=== PATIENT | female | born 1950 | race Caucasian/White ===

== ENCOUNTER 2016-09-24 10:46 | Inpatient (IN) | payer OTHER ==
[2016-09-24] MEDS ORDERED: HYDROmorphone HCL 1 MG/ML DISP.SYRIN IM ONE (10:47)
[2016-09-24] MEDS ORDERED: HYDROmorphone HCL 1 MG/ML DISP.SYRIN IV ONE (10:48)
[2016-09-24] MEDS ORDERED: HYDROmorphone HCL 1 MG/ML DISP.SYRIN ONE ×2 (10:50→11:58)
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
--- OUTSIDE RECORDS SUMMARY | 2016-09-24 11:57 | XMS REPORT | Continuity of Care Document ---
:1950 Author Organization [facility] ([facility]) Address [address] [place] [address] Phone [phone] Care Team Providers Name Role Phone Unavailable Primary Care Provider Unavailable Source Comments This disclosure is being made pursuant to the Care Everywhere program, applicable federal and state laws, and may not contain all informaitonavailable regarding this patient.[facility] ([facility]) Active Allergies and Adverse Reactions Not on File Current Medications Not on file Active Problems Not on file Social History Tobacco Use Types Packs/Day Years Used Date Never Assessed Plan of Care Health Maintenance Due Date Last Done Comments HCV Screening 1950 Hepatitis B Vaccine (1 of 3 - Primary Series) 1950 Tdap Vaccine 12/22/1962 Lipid Disorder Screening 12/22/1969 Td Vaccine 12/22/1969 Cervical Cancer Screening 12/22/1981 Mammogram 1991 Colonoscopy 12/22/2001 Zoster Vaccine 2011 Influenza Vaccine: Seasonal (#1) 11/10/2015 Results from Last 3 Months Not on file
--- OUTSIDE RECORDS SUMMARY | 2016-09-24 11:59 | XMS REPORT | Continuity of Care Document ---
:1950 Author Organization [facility] ([facility]) Address [address] [place] [address] Phone [phone] Care Team Providers Name Role Phone Unavailable Primary Care Provider Unavailable Source Comments This disclosure is being made pursuant to the Care Everywhere program, applicable federal and state laws, and may not contain all informaitonavailable regarding this patient.[facility] ([facility]) Active Allergies and Adverse Reactions Not on [...]
[2016-09-24] MEDS: HYDROmorphone HCL 1 MG/ML DISP.SYRIN IV PRN ×5 (12:03→23:23)
[2016-09-24 12:18] LABS: Hematocrit 38.2 % (37.0-47.0); Hemoglobin 13.2 gm/dL (12.5-16.0); Mean Cell Volume 89.3 fl (78-100); Mean Corpuscular Hemoglobin 30.8 pg (27-31); Mean Corpuscular Hgb Conc 34.6 g/dl (32-36); Mean Platelet Volume 10.3 fl (6.0-9.5); Neutrophil # 4.4 K/mm3 (1.3-6.0); Platelet Count 142 K/mm3 (150-450); Red Blood Count 4.28 M/mm3 (4.2-5.4); Red Cell Distribution Width 13.2 % (11.5-14.0); White Blood Count 5.7 K/mm3 (4.0-10.5)
[2016-09-24 12:41] LABS: Albumin * 3.8 gm/dl (3.4-5.0); Anion Gap 13.6 mmol/L (6.8-13.8); Bilirubin, Total 0.8 mg/dL (0.0-1.1); Ca. Corrected For Albumin 8.9 mg/dL (8.4-10.2); Calcium * 9.1 mg/dL (7.9-10.9); Carbon Dioxide 27.2 mmol/L (24-32.6); Potassium 3.8 mmol/L (3.4-4.6); Total Protein 6.7 gm/dL (6.2-8.2)
[2016-09-24] MEDS: DEXTROSE 5%-NORMAL SALINE 1,000 ML IV PRN ×2 (13:40→20:56)
--- NOTE | 2016-09-24 17:47 | HP ---
Chief Complaint - Chief Complaint Date of Service: 09/24/16 Time of Service: 19:15 Chief Complaint: Right upper thigh pain History of Present Illness: This a 65 y/o essentially healthy woman who presented to the [facility] ER today after injuring herself while going for the ball while playing pickle ball. She fell and immediately complained of right upper thigh pain. She denied any numbness, tingling, dyspnea, chest pain, nausea, chest pain, nausea or dizziness. She has a history of hypothyroidism. She is unable to stand on her right leg. Xray shows a right femoral neck fracture. - Patient's Past Medical History Patient History - Medical: No pertinent hx, Hypothyroidism Patient History - Cardiac/Respiratory: No pertinent hx Patient History - Cancer: No Hx of Cancer Patient History - Surgical Procedures: Orthopedic Patient History - Other: None LMP (females 10-50): unknown - Family History Father Family History - Medical: , Alzheimer's Disease Family History - Cardiac/Respiratory: COPD Family History - Cancer: No pertinent family hx Mother Family History - Medical: Cataracts, Kidney stone Family History - Cardiac/Respiratory: No pertinent hx Family History - Cancer: No pertinent family hx - Social History Living Situations: spouse Abuse History: No History of abuse Psych History: No pertinent hx Smoking Status: Never smoker Have you smoked in the past 12 months: No Do you dip or chew tobacco: No Patient requests Smoking Cessation Consult: No Initiate information on Smoking Cessation: No Alcohol Use: occasionally Drug Use: none - Immunizations Immunizations Up to Date: Yes History of Influenza Vaccine: Yes Review Of Systems (GEN) - Review of Systems Generalized/Overall Review: Present: No Symptoms Reported EENTM: Present: No Symptoms Reported Respiratory: Present: No Symptoms Reported Cardiac: Present: No Symptoms Reported Abdominal: Present: No Symptoms Reported Genitourinary: Present: No Symptoms Reported Musculoskeletal: Present: Joint Pain - right upper thigh pain Neurological: Present: No Symptoms Reported Skin: Present: No Symptoms Reported Endocrine: Present: No Symptoms Reported Misc: All systems neg except as marked Immunizations: IMMUNIZATION HX Immunizations Up to Date Yes History of Influenza Vaccine Yes Allergies/Adverse Reactions: Allergies Allergy/AdvReac Type Severity Reaction Status Date / Time No Known Allergies Allergy Verified 09/24/16 10:55 Home Medications: HOME MEDICATIONS Levothyroxine Sodium [Synthroid] 25 mcg PO DAILY 09/24/16 [Last Taken Unknown] Exam - Exam Vital Signs: Vital Signs - Last Taken Selected Entries 09/24/16 15:52 Temperature 35.8 C L Pulse Rate 81 Respiratory 20 Rate Blood Pressure 114/63 O2 Sat by Pulse 95 Oximetry Constitutional: Present: Alert, Oriented x3, Cooperative, Well developed, Well nourished, No distress ENT Exam: Present: normal ENT inspection, hearing grossly normal Eye Exam: bilateral eye: normal inspection, PERRL, EOMI Neck: Present: normal inspection Back Exam: Present: normal inspection Respiratory: Present: normal breath sounds, no respiratory distress Cardiovascular/Chest: Present: regular rate, rhythm, no murmur Abdomen: Present: Normal bowel sounds, soft, nontender, nondistended, no rebound tenderness, no hepatospenomegaly, no masses Extremity: Present: normal inspection, no pedal edema, other - pain with movement of right leg Neurologic: Present: alert, oriented x 3 Appearance: Present: appropriate appearance, appropriate insight, neat, no memory impairment Eye contact: Present: cooperative, good eye contact, normal speech Thoughts: Present: normal thought pattern Diagnostic Studies: Abnormal Lab Results 09/24/16 Range/Units 12:14 Plt Count 142 L (150-450) K/mm3 MPV 10.3 H (6.0-9.5) fl Neutrophils % 78.0 H (42-75.0) % Lymphocytes % 16.6 L (20-51) % Lymphocytes # 0.9 L (1.5-3.5) k/mm3 Laboratory Results WBC 5.7 K/mm3 (4.0-10.5) 09/24/16 12:14 RBC 4.28 M/mm3 (4.2-5.4) 09/24/16 12:14 Hgb 13.2 gm/dL (12.5-16.0) 09/24/16 12:14 Hct 38.2 % (37.0-47.0) 09/24/16 12:14 MCV 89.3 fl (78-100) 09/24/16 12:14 MCH 30.8 pg (27-31) 09/24/16 12:14 MCHC 34.6 g/dl (32-36) 09/24/16 12:14 RDW 13.2 % (11.5-14.0) 09/24/16 12:14 Plt Count 142 K/mm3 (150-450) L 09/24/16 12:14 MPV 10.3 fl (6.0-9.5) H 09/24/16 12:14 Immature Gran % (Auto) 0.40 % (0.001-0.429) 09/24/16 12:14 Immature Gran # (Auto) 0.02 K/mm3 (0.000-0.0310) 09/24/16 12:14 Neutrophils % 78.0 % (42-75.0) H 09/24/16 12:14 Lymphocytes % 16.6 % (20-51) L 09/24/16 12:14 Monocytes % 4.4 % (0.0-9) 09/24/16 12:14 Eosinophils % 0.2 % (0.0-3.0) 09/24/16 12:14 Basophils % 0.4 % (0.0-1.0) 09/24/16 12:14 Nucleated RBC % 0.0 k/mm3 (0-1) 09/24/16 12:14 Neutrophils # 4.4 K/mm3 (1.3-6.0) 09/24/16 12:14 Lymphocytes # 0.9 k/mm3 (1.5-3.5) L 09/24/16 12:14 Monocytes # 0.3 k/mm3 (0.0-1.0) 09/24/16 12:14 Eosinophils # 0.0 k/mm3 (0.0-0.7) 09/24/16 12:14 Absolute Basophils 0.0 k/mm3 (0.0-0.1) 09/24/16 12:14 Sodium 140 mmol/L (132-142) 09/24/16 12:14 Plasma Sodium 140 mmol/L (130-142) 09/24/16 12:14 Potassium 3.8 mmol/L (3.4-4.6) 09/24/16 12:14 Chloride 103 mmol/L (97-106) 09/24/16 12:14 Carbon Dioxide 27.2 mmol/L (24-32.6) 09/24/16 12:14 Anion Gap 13.6 mmol/L (6.8-13.8) 09/24/16 12:14 BUN 16 mg/dL (3-23) 09/24/16 12:14 Creatinine 0.94 mg/dL (0.4-1.4) 09/24/16 12:14 Est GFR (Non-Af Amer) 64 mL/min (60-130) 09/24/16 12:14 BUN/Creatinine Ratio 17.0 (9.0-21.6) 09/24/16 12:14 Random Glucose 110 mg/dL (70-110) 09/24/16 12:14 Calcium 9.1 mg/dL (7.9-10.9) 09/24/16 12:14 Calcium Adj for Albumin 8.9 mg/dL (8.4-10.2) 09/24/16 12:14 Total Bilirubin 0.8 mg/dL (0.0-1.1) 09/24/16 12:14 AST 21 U/L (0-48) 09/24/16 12:14 ALT 25 U/L (19-67) 09/24/16 12:14 Alkaline Phosphatase 57 U/L (50-170) 09/24/16 12:14 Total Protein 6.7 gm/dL (6.2-8.2) 09/24/16 12:14 Albumin 3.8 gm/dl (3.4-5.0) 09/24/16 12:14 Assessment/Plan - Narrative Narrative: No contraindication to planned repair of fracture tomorrow, which may proceed. A little nause tonight with pain medication. - Assessment/Plan (1) Fracture of femoral neck, right, closed Problem: Acute Qualifiers: Encounter type: initial encounter Qualified Code(s): S72.001A - Fracture of unspecified part of neck of right femur, initial encounter for closed fracture
[2016-09-24] MEDS: ONDANSETRON HCL/PF 2 MG/ML VIAL IV PRN (19:03)
[2016-09-24] MEDS: ACETAMINOPHEN 325 MG TABLET PO PRN (20:54)
[2016-09-24] MEDS ORDERED: ZOLPIDEM TARTRATE 5 MG TABLET PO ONE (21:00)
[2016-09-24] MEDS ORDERED: ZOLPIDEM TARTRATE 5 MG TABLET ONE (23:21)
[2016-09-25] MEDS: HYDROmorphone HCL 1 MG/ML DISP.SYRIN IV PRN ×5 (00:23→15:51)
[2016-09-25] MEDS: DEXTROSE 5%-NORMAL SALINE 1,000 ML IV PRN (04:38)
[2016-09-25 05:33] LABS: Hematocrit 35.6 % (37.0-47.0); Hemoglobin 11.8 gm/dL (12.5-16.0); Mean Cell Volume 93.2 fl (78-100); Mean Corpuscular Hemoglobin 30.9 pg (27-31); Mean Corpuscular Hgb Conc 33.1 g/dl (32-36); Mean Platelet Volume 10.7 fl (6.0-9.5); Platelet Count 120 K/mm3 (150-450); Red Blood Count 3.82 M/mm3 (4.2-5.4); Red Cell Distribution Width 13.4 % (11.5-14.0)
[2016-09-25 05:52] LABS: Anion Gap 8.6 mmol/L (6.8-13.8); BUN/Creatinine Ratio 9.9 (9.0-21.6); Calcium * 8.2 mg/dL (7.9-10.9); Carbon Dioxide 30.1 mmol/L (24-32.6); Estimated Creat Clear 65.3; Potassium 3.7 mmol/L (3.4-4.6)
[2016-09-25] MEDS ORDERED: RINGERS SOLUTION,LACTATED 1,000 ML IV PRN (06:00)
[2016-09-25] MEDS ORDERED: ROPIVACAINE HCL/PF 100 MG, KETOROLAC TROMETHAMINE 30 MG, EPINEPHrine 0.2 MG in NORMAL S... IJ PRN (06:00)
[2016-09-25] MEDS: ACETAMINOPHEN 325 MG TABLET PO PRN (06:46)
[2016-09-25] MEDS: ONDANSETRON HCL/PF 2 MG/ML VIAL IV PRN ×2 (07:21→22:02)
--- NOTE | 2016-09-25 08:34 | CONS ---
[facility] - General Date of Service: 09/25/16 Narrative: Mrs Cadena is a 65-year-old female who was playing pickle ball when she fell resulting in a fracture of her right hip. She was seen in the emergency department at which time she was found to have an inability to weight-bear as well as notable hip pain. X-rays were obtained which showed a displaced subcapital femoral neck fracture. She denies any other trauma. She is very active and healthy otherwise. She denies any prior hip pain. She denies any family history of blood clots or bleeding disorders. She denies any family history of anesthesia problems. She's had prior rotator cuff surgery with no complications related to this. Source: patient - History of Present Illness Timing/Duration: 24 hours Severity: moderate Modifying Factors - (Worsens): Reports: movement Modifying Factors - (Improves): Reports: immobilization Associated Symptoms: denies symptoms Allergies/Adverse Reactions: Allergies No Known Allergies Allergy (Verified 09/24/16 10:55) Home Medications: Home Medications Medication Instructions Recorded Last Taken Levothyroxine Sodium [Synthroid] 25 mcg PO DAILY 09/24/16 Unknown - Patient's Past Medical History Patient History - Medical: No pertinent hx, Hypothyroidism Patient History - Cardiac/Respiratory: No pertinent hx Patient History - Cancer: No Hx of Cancer Patient History - Surgical Procedures: Orthopedic Patient History - Other: None LMP (females 10-50): unknown - Family History Father Family History - Medical: , Alzheimer's Disease Family History - Cardiac/Respiratory: COPD Family History - Cancer: No pertinent family hx Mother Family History - Medical: Cataracts, Kidney stone Family History - Cardiac/Respiratory: No pertinent hx Family History - Cancer: No pertinent family hx - Social History Living Situations: spouse Abuse History: No History of abuse Psych History: No pertinent hx Smoking Status: Never smoker Have you smoked in the past 12 months: No Do you dip or chew tobacco: No Patient requests Smoking Cessation Consult: No Initiate information on Smoking Cessation: No Alcohol Use: occasionally Drug Use: none - Immunizations Immunizations Up to Date: Yes History of Influenza Vaccine: Yes Procedures COLONOSCOPY (02/22/07) Medications - Medications Current Medications: Current Medications Acetaminophen (Tylenol) 650 mg PO QID PRN PRN Reason: Mild Pain Stop: 10/24/16 12:53 Last Admin: 09/25/16 06:46 Dose: 650 mg Hydromorphone HCl (Dilaudid) 1 mg IV Q1H PRN PRN Reason: Moderate to Severe Pain Stop: 10/24/16 11:59 Last Admin: 09/25/16 04:38 Dose: 1 mg Dextrose/Sodium Chloride (Dextrose 5%-0.9% Ns) 1,000 mls @ 125 mls/hr IV .Q8H PRN PRN Reason: HYDRATION Stop: 10/24/16 23:59 Last Admin: 09/25/16 04:38 Dose: 125 mls/hr Ondansetron HCl (Zofran) 4 mg IV Q6H PRN PRN Reason: Nausea And Vomiting Stop: 10/24/16 18:21 Last Admin: 09/25/16 07:21 Dose: 4 mg Physical Examination - Exam Narrative: She is alert and oriented 3. Right lower extremity: She sitting a flexed position. Dorsalis pedis pulses palpable. Sensation is intact light touch. She didn't flex and extend her toes and ankle. She has pain with any hip range of motion. There is no lacerations or ecchymosis or abrasions about the hip. Vital Signs: Vital Signs - Last Taken Temp 36.5 C 09/25/16 06:43 Pulse 94 09/25/16 06:43 Resp 15 09/25/16 06:43 BP 118/65 09/25/16 06:43 Pulse Ox 96 09/25/16 06:43 O2 Oxygen Delivery Method Room Air Constitutional: Present: Alert, Oriented x3 - Results and Findings: Narrative: AP pelvis 2 views right hip: Displaced subcapital femoral neck fracture on the right without any associative acetabular proximal femoral fracture. No signs of advanced arthritis Lab/Microbiology results last 24 hrs: Abnormal/Pending Laboratory Last 24 HRS 09/25/16 09/25/16 09/24/16 04:50 04:50 12:14 RBC 3.82 L Hgb 11.8 L Hct 35.6 L Plt Count 120 L 142 L MPV 10.7 H 10.3 H Neutrophils % 78.0 H Lymphocytes % 16.6 L Lymphocytes # 0.9 L Random Glucose 140 H - Assessments/Findings (1) Fracture of femoral neck, right, closed Diagnosis(s): We discussed due to her age and activity level the recommendation is for a total hip arthroplasty. The risks benefits alternatives were discussed. Plan is for the operating room today to perform this procedure. She will receive 10 days postoperative anticoagulation for DVT prophylaxis followed by 6 weeks of daily aspirin. She will need to be continued with anterior hip precautions and start physical therapy tomorrow. All questions were asked and consent was obtained. She'll receive IV Ancef for antibiotics Problem: Acute Qualifiers: Encounter type: initial encounter Qualified Code(s): S72.001A - Fracture of unspecified part of neck of right femur, initial encounter for closed fracture
[2016-09-25] MEDS ORDERED: DEXTROSE 5%-0.5 NORMAL SALINE 1,000 ML IV ONE (08:40)
--- NOTE | 2016-09-25 08:54 | PN ---
Subjective - Date and Time Seen Date: 09/25/16 Time: 08:45 Subjective Narrative: pain last night Objective - Review of Systems Generalized/Overall Review: Reports: No Symptoms Reported EENTM: Reports: No Symptoms Reported Respiratory: Reports: No Symptoms Reported Cardiac: Reports: No Symptoms Reported Abdominal: Reports: No Symptoms Reported Genitourinary Symptoms: Reports: No Symptoms Reported Musculoskeletal Complaints: Reports: Joint Pain Neurological: Reports: No Symptoms Reported Skin: Reports: No Symptoms Reported Endocrine: Reports: No Symptoms Reported Misc: All systems neg except as marked - Vitals Vitals: Last Vital Signs Selected Entries 09/25/16 06:43 Temperature 36.5 C Temperature Temporal Artery Source Scan Pulse Rate 94 Pulse Rhythm Regular Pulse Strength Normal Respiratory 15 Rate Respiratory Normal Depth Respiratory Normal Effort Respiratory Normal Pattern Blood Pressure 118/65 Blood Pressure 82 Mean Blood Pressure Supine Position O2 Sat by Pulse 96 Oximetry Oxygen Delivery Room Air Method - Abnormal Lab Findings Abnormal Lab Findings: Abnormal Lab Results 09/24/16 09/25/16 09/25/16 Range/Units 12:14 04:50 04:50 RBC 3.82 L (4.2-5.4) M/mm3 Hgb 11.8 L (12.5-16.0) gm/dL Hct 35.6 L (37.0-47.0) % Plt Count 142 L 120 L (150-450) K/mm3 MPV 10.3 H 10.7 H (6.0-9.5) fl Neutrophils % 78.0 H (42-75.0) % Lymphocytes % 16.6 L (20-51) % Lymphocytes # 0.9 L (1.5-3.5) k/mm3 Random Glucose 140 H (70-110) mg/dL - Exam Constitutional: Present: Alert, Oriented x3, Cooperative, Well developed, Well nourished, No distress ENT Exam: Present: normal ENT inspection, hearing grossly normal Neck: Present: normal inspection Respiratory: Present: normal breath sounds, no respiratory distress Cardiovascular/Chest: Present: regular rate, rhythm, no chest tenderness Abdomen: Present: Normal bowel sounds, soft, nontender, nondistended, no rebound tenderness, no hepatospenomegaly, no masses Extremity: Present: normal inspection, no pedal edema, other - right hip pain with movement Neurologic: Present: alert, oriented x 3 Eye contact: Present: cooperative, good eye contact, normal speech Thoughts: Present: normal thought pattern Cauti Physician Documentation - Urinary Catheter Management Urethral (Pearce) Date of Insertion: 09/24/16 Time of Insertion: 15:38 Assessment/Plan Plan Narrative: For hip repair today - Problems/Diagnosis (1) Fracture of femoral neck, right, closed Problem: Acute Qualifiers: Encounter type: initial encounter Qualified Code(s): S72.001A - Fracture of unspecified part of neck of right femur, initial encounter for closed fracture
[2016-09-25] MEDS ORDERED: ceFAZolin SODIUM 1 GM VIAL IV ONE (09:00)
[2016-09-25] MEDS ORDERED: RINGERS SOLUTION,LACTATED 1,000 ML IV ONE ×2 (09:20→10:29)
[2016-09-25] MEDS ORDERED: diphenhydrAMINE HCL 50 MG/ML VIAL IV PRN (11:15)
[2016-09-25] MEDS ORDERED: MAG HYDROX/ALUMINUM HYD/SIMETH 30 ML UDC PO PRN (11:15)
[2016-09-25] MEDS ORDERED: ACETAMINOPHEN 500 MG TABLET PO PRN (11:15)
[2016-09-25] MEDS ORDERED: oxyCODONE HCL/ACETAMINOPHEN 1 TAB TABLET PO PRN (11:15)
[2016-09-25] MEDS ORDERED: MAGNESIUM HYDROXIDE 30 ML UDC PO PRN (11:15)
[2016-09-25] MEDS ORDERED: PROMETHAZINE HCL 5 MG in DEXTROSE 5 % IN WATER 50 ML IV PRN ×2 (11:15)
--- NOTE | 2016-09-25 11:23 | OR ---
Operative Report - Dictated Report Narrative: Date: 09/25/2016 Preoperative diagnosis: Displaced right femoral neck fracture. Postoperative diagnosis: Displaced right femoral neck fracture. Procedure: Right Total hip arthroplasty. Surgeon: Vlad Pacheco M.D. Finished Carpet Inspector: None Anesthesia: Spinal and local periarticular joint injection. Complications: None Specimens: Bone for disposal. Estimated blood loss: 150 milliliters. Retained implants: Depuy [place] size 5 femoral stem standard offset. Size 52 millimeter ouside diameter 3-hole [place] Gription acetabular cup. 52 millimeter outside by 36 millimeter inside diameter highly cross-linked acetabular liner. 36 millimeter diameter +8.5 millimeter cobalt chromium femoral head. Cancellous 6.5mm screw 35 millimeter length Indications: Mrs. Carr is a 65-year-old female who fell while playing pickle ball. She was seen in emergency department family have a displaced femoral neck fracture. She was evaluated on the floor at which time we discussed the risks, benefits, and alternatives were discussed. The risks of , blood clots, bleeding, infection, nerve/tendon blood vessel/ injury, malposition of components, dislocation and/or instability of joint, intraoperative fracture, postoperative limited range of motion, persistent pain, failure of components, and need for additional procedures. Patient wished to proceed. Consent was obtained after answering all questions. Procedure: After marking the correct extremity on the floor, the patient was taken to the operating room. A timeout was performed. IV antibiotics consisting of Ancef were administered prior to the procedure. A spinal anesthetic was induced by anesthesia. A Pearce catheter was inserted. The patient was then transitioned to a lateral position on a well-padded pegboard. An axillary roll was placed. The head was in neutral position. The non- operative down leg was well-padded with SCD and PROSPER hose in place. The arms were supported and padded to protect from any undue pressure on the bony prominences and nerves. A well-padded anterior and posterior pelvic and chest posts were secured in order to maintain a stable position of the pelvis. This was placed so that the pelvis was perpendicular to the floor. The body was in line with the pelvis. Once it was felt that we had protected all the bony prominences and the patient was well secured with a safety belt as well, the leg was pre-scrubbed with alcohol, prepped and draped in a standard sterile fashion. A standard anterior lateral hip incision was marked out over the greater trochanter. [place] drapes were then placed. The skin incision was then made. Sharp dissection with a scalpel utilizing cautery for hemostasis was carried out down to the gluteus and iliotibial band fascia. This was split in line with the skin incision. The greater trochanter bursa was excised. The anterior and posterior margins of the abductor tendon were identified. The anterior 1/2-1/3 of the tendon was tagged and reflected off the greater trochanter leaving a sleeve of tendon for repair at the completion of the case. This exposed the underlying hip joint capsule. An inverted T-type capsulotomy was made extending this up to the brim of the acetabulum. An acute hematoma was encountered. Using Homans to assist with elevation of the soft tissues off the anterior, superior, and inferior aspects of the femoral neck, the hip was then placed in a figure 4 position and the femoral head was dislocated. With the leg in an externally rotated and adducted position, the cutting flag was utilized in order to arron for a standard femoral neck cut approximately a fingerbreadth above the level of the lesser trochanter. This was done with reference to pre-operative films and overall alignment. This was done while protecting the surrounding soft tissues with Homans. The femoral head was then removed and sized for guidance on preparation of the acetabulum. It was noted that there was loss of articular cartilage on both the femoral head and weightbearing portions of the acetabulum. We then returned the leg to the table and turned our attention to the acetabulum. While protecting the surrounding soft tissues, the labrum and remaining tissue in the fovea were excised using a scalpel and cautery. A series of reamers up to size 52 millimeter were utilized to prepare the acetabulum. The final reamer had good purchase and exposed the bleeding subchondral bone. The acetabulum was then thoroughly irrigated ensuring that all bony and cartilaginous materials were removed, and the final acetabular shell was impacted into place. This was placed in approximately 45 degrees of abduction and 30 degrees of anteversion utilizing the outrigger and body axis for alignment. She was noted to have significant anatomic anteversion on both her femur and acetabulum. The cup was placed to match her [place] anatomy which places and slightly increased anteversion This had a good press fit. 1 6.5mm cancellous screw was placed in the superior posterior quadrant of the acetabulum. The shell was then thoroughly irrigated and the final polyethylene was impacted into place ensuring that it seated completely. This was then protected with a sponge while we returned our attention to the femur. With the leg in a figure 4 position, utilizing Homans for soft tissue protection , a box cutting osteotome, followed by [place]arn[place] awl, followed by serial reamers and broaches were utilized in order to prepare the femur. It was found that a size 5 broach gave good axial and rotational stability. The calcar reamer was utilized in order to clean up the cut edges. The proximal femur was visualized to ensure that there were no signs of fracture. A series of heads and necks were trialed. It was found that a standard neck and a + 8.5 femoral head gave good overall stability. There was minimal longitudinal instability. With the leg in the position of sleep, the femoral head was well covered. Hip range of motion was able to reach full extension and external rotation to greater than 75 degrees prior to impingement along the posterior acetabulum. The hip was able to be flexed to greater than 90 degrees with internal rotation greater than 60 degrees prior to anterior impingement. The limb lengths were near equal based on comparison to the contralateral side. In the resting position she had good coverage. Again it was noted that the combined anteversion between the cup and the femoral neck made for a minimally uncovered anterior head however this matched her anatomy. At this point it was felt these were the appropriately sized femoral components as well as neck and femoral head. The trial implants were removed. The femur was thoroughly irrigated. The final implants were impacted into place, and the hip was reduced. After ensuring that there was no damage to the proximal femur , the standard periarticular joint injection of ropivacaine, Toradol, and epinephrine were injected into the joint capsule and surrounding soft tissues. The capsule was repaired with a single interrupted #1 Vicryl. The abductor tendon was repaired to the greater trochanter utilizing #5 [place]ib[place] through drill holes. This was oversewn with #1 Vicryl. The fascia was closed with interrupted #1 Vicryl. The wounds were thoroughly irrigated as we closed in layers. The deep and subcutaneous fat layers were closed with 0 and 3-0 Vicryl respectively. The subcutaneous tissue was closed with a running 3-0 Vicryl and the skin with 3-0 Monocryl, prineo Dermabond dressing. All sponge, needle, blade, and instrument counts were correct prior to closing the wounds. Sterile dressings consisting of 4 x 4's and tape were applied. The patient was awoken and transferred to her hospital bed and then to the postanesthesia care unit in stable condition. Postoperative condition: The plan is to admit to the medical/surgical inpatient floor postoperatively. There will be a projected 2 to 4 day hospital stay. Postoperatively 24 hours of IV antibiotics, pain control, physical therapy, occupational therapy, and medical comanagement will be utilized. Patient will be weightbearing as tolerated with anterior hip precautions. Postoperative films will be obtained in the recovery room.
[2016-09-25] MEDS: DEXTROSE 5%-LACTATED RINGERS 1,000 ML IV PRN ×2 (12:14→20:48)
[2016-09-25] MEDS: KETOROLAC TROMETHAMINE 15 MG/ML VIAL IV SCH ×2 (12:14→17:23)
[2016-09-25] MEDS: ceFAZolin SODIUM 1 GM in DEXTROSE 5 % IN WATER 100 ML IV SCH ×4 (12:15→20:51)
[2016-09-25] MEDS: LEVOTHYROXINE SODIUM 25 MCG TABLET PO SCH (12:16)
[2016-09-25] MEDS: SENNOSIDES/DOCUSATE SODIUM 1 TAB TABLET PO SCH (20:51)
[2016-09-25] MEDS ORDERED: MORPHINE SULFATE 15 MG TABLET.SA PO SCH (21:00)
[2016-09-26] MEDS ORDERED: ONDANSETRON HCL/PF 2 MG/ML VIAL IV PRN (00:23)
[2016-09-26] MEDS: KETOROLAC TROMETHAMINE 15 MG/ML VIAL IV SCH ×2 (00:25→04:54)
[2016-09-26] MEDS: ceFAZolin SODIUM 1 GM in DEXTROSE 5 % IN WATER 100 ML IV SCH ×2 (00:27)
[2016-09-26 05:33] LABS: Hematocrit 27.9 % (37.0-47.0); Hemoglobin 9.5 gm/dL (12.5-16.0); Mean Cell Volume 91.2 fl (78-100); Mean Corpuscular Hgb Conc 34.1 g/dl (32-36); Mean Platelet Volume 9.9 fl (6.0-9.5); Platelet Count 72 K/mm3 (150-450); Red Blood Count 3.06 M/mm3 (4.2-5.4); Red Cell Distribution Width 12.7 % (11.5-14.0); White Blood Count 6.4 K/mm3 (4.0-10.5)
[2016-09-26 05:43] LABS: Anion Gap 7.1 mmol/L (6.8-13.8); BUN/Creatinine Ratio 11.1 (9.0-21.6); Calcium * 8.1 mg/dL (7.9-10.9); Carbon Dioxide 29.9 mmol/L (24-32.6); Estimated Creat Clear 73.3
[2016-09-26] MEDS: DEXTROSE 5%-LACTATED RINGERS 1,000 ML IV PRN (06:25)
[2016-09-26] MEDS: LEVOTHYROXINE SODIUM 25 MCG TABLET PO SCH (06:28)
--- NOTE | 2016-09-26 08:24 | PN ---
Subjective - Date and Time Seen Date: 09/26/16 Time: 08:21 Subjective Narrative: Nausea, no appetite, hip pain. Objective - Review of Systems Generalized/Overall Review: Reports: No Symptoms Reported EENTM: Reports: No Symptoms Reported Respiratory: Reports: No Symptoms Reported Cardiac: Reports: No Symptoms Reported Abdominal: Reports: Nausea, Other - anorexia Genitourinary Symptoms: Reports: No Symptoms Reported Musculoskeletal Complaints: Reports: Joint Pain Neurological: Reports: No Symptoms Reported Skin: Reports: No Symptoms Reported Endocrine: Reports: No Symptoms Reported Misc: All systems neg except as marked - Vitals Vitals: Last Vital Signs Selected Entries 09/26/16 06:15 Temperature 36.7 C Temperature Oral Source Pulse Rate 82 Pulse Rhythm Regular Pulse Strength Normal Respiratory 18 Rate Respiratory Normal Depth Respiratory Normal Effort Non-Labored Respiratory Normal Pattern Blood Pressure 119/67 O2 Sat by Pulse 94 Oximetry Oxygen Delivery Room Air Method - Abnormal Lab Findings Abnormal Lab Findings: Abnormal Lab Results 09/26/16 09/26/16 Range/Units 05:25 05:25 RBC 3.06 L (4.2-5.4) M/mm3 Hgb 9.5 L (12.5-16.0) gm/dL Hct 27.9 L (37.0-47.0) % Plt Count 72 L (150-450) K/mm3 MPV 9.9 H (6.0-9.5) fl Random Glucose 158 H (70-110) mg/dL - Exam Constitutional: Present: Alert, Oriented x3, Cooperative, Well developed, Well nourished, No distress ENT Exam: Present: normal ENT inspection, hearing grossly normal Neck: Present: normal inspection Respiratory: Present: normal breath sounds, no respiratory distress Cardiovascular/Chest: Present: regular rate, rhythm, no chest tenderness Abdomen: Present: Normal bowel sounds, soft, nontender, nondistended, no rebound tenderness, no hepatospenomegaly, no masses Extremity: Present: normal inspection, other - pain with moving right hip Neurologic: Present: alert, oriented x 3 Eye contact: Present: cooperative, good eye contact, normal speech Thoughts: Present: normal thought pattern Cauti Physician Documentation - Urinary Catheter Management Urethral (Pearce) Date of Insertion: 09/24/16 Time of Insertion: 15:38 Date of Removal: 09/26/16 Time of Removal: 06:35 Assessment/Plan Plan Narrative: Nausea, pain and anorexia following hip repair. Will adjust meds to get her more comfortable. - Problems/Diagnosis (1) Fracture of femoral neck, right, closed Problem: Acute Qualifiers: Encounter type: initial encounter Qualified Code(s): S72.001A - Fracture of unspecified part of neck of right femur, initial encounter for closed fracture
[2016-09-26] MEDS ORDERED: ACETAMINOPHEN 325 MG TABLET PO SCH (09:00)
[2016-09-26] MEDS: METOCLOPRAMIDE HCL 5 MG/5 ML BTL PO SCH ×4 (09:40→20:45)
[2016-09-26] MEDS: ACETAMINOPHEN 325 MG TABLET PO SCH ×4 (09:41→20:45)
[2016-09-26] MEDS: LORazepam 0.5 MG TABLET PO SCH ×3 (09:48→16:34)
[2016-09-26] MEDS: HYDROcodone/ACETAMINOPHEN 1 EACH TABLET PO SCH ×3 (09:49→16:40)
[2016-09-26] MEDS: ENOXAPARIN SODIUM 40 MG/0.4 ML SYRG SC SCH (09:50)
--- NOTE | 2016-09-26 10:23 | PN ---
Subjective - Date and Time Seen Date: 09/26/16 Time: 10:21 Subjective Narrative: Subjective: Reports nausea last night as well as difficulty sleeping. Was able to walk in the [place] with therapy. Pain is well-controlled. Voiding without any complications. Tolerating by mouth intake. Denies calf pain. Physical exam: Alert and oriented to person, place and time Right lower Extremity: Palpable dorsalis pedis pulse. Sensation grossly intact to light touch. Dressings clean and dry. Able to flex and extend ankle and toes. No excessive drainage. Calf and thigh are soft and nontender. Assessment: Postop day 1 status post right total hip arthroplasty. Plan: Continue with physical and occupational therapy weightbearing as tolerated. Continue anterior hip precautions. Continue with anticoagulation. 24 hours postoperative prophylactic antibiotics. Pain control with goal to rely on oral medications. Continue bowel regimen. Will need 6 weeks with walker or assitive device to protect joint while ambulating during the recovery process. Discharge planning. Discontinue Pearce catheter. Repeat labs in a.m. she will follow up with me in approximately 2 weeks. She is okay to shower as long is no drainage from the wound. She will need a total of 10 days of Lovenox including the doses that she receives in the hospital. From an orthopedic standpoint she can be discharged home once she is meets her PT goals and has a pain regimen that she tolerates. Objective - Vitals Vitals: Last Vital Signs Temp 36.7 C 09/26/16 06:15 Pulse 82 09/26/16 06:15 Resp 18 09/26/16 06:15 BP 119/67 09/26/16 06:15 Pulse Ox 94 09/26/16 06:15 - Abnormal Lab Findings Abnormal Lab Findings: Abnormal Lab Results 09/26/16 09/26/16 Range/Units 05:25 05:25 RBC 3.06 L (4.2-5.4) M/mm3 Hgb 9.5 L (12.5-16.0) gm/dL Hct 27.9 L (37.0-47.0) % Plt Count 72 L (150-450) K/mm3 MPV 9.9 H (6.0-9.5) fl Random Glucose 158 H (70-110) mg/dL Cauti Physician Documentation - Urinary Catheter Management Urethral (Pearce) Date of Insertion: 09/24/16 Time of Insertion: 15:38 Date of Removal: 09/26/16 Time of Removal: 06:35 Assessment/Plan - Problems/Diagnosis (1) Fracture of femoral neck, right, closed Problem: Acute Qualifiers: Encounter type: subsequent encounter Fracture healing: with routine healing Qualified Code(s): S72.001D - Fracture of unspecified part of neck of right femur, subsequent encounter for closed fracture with routine healing
[2016-09-26] MEDS ORDERED: LORazepam 0.5 MG TABLET PO PRN (17:27)
[2016-09-26] MEDS: SENNOSIDES/DOCUSATE SODIUM 1 TAB TABLET PO SCH (20:45)
[2016-09-26] MEDS ORDERED: ZOLPIDEM TARTRATE 10 MG TABLET PO PRN (20:59)
[2016-09-26] MEDS: HYDROcodone/ACETAMINOPHEN 1 EACH TABLET PO PRN (21:51)
[2016-09-27] MEDS: HYDROcodone/ACETAMINOPHEN 1 EACH TABLET PO PRN ×5 (03:38→21:52)
[2016-09-27 06:06] LABS: Hematocrit 26.7 % (37.0-47.0); Hemoglobin 9.2 gm/dL (12.5-16.0); Mean Cell Volume 90.2 fl (78-100); Mean Corpuscular Hemoglobin 31.1 pg (27-31); Mean Corpuscular Hgb Conc 34.5 g/dl (32-36); Mean Platelet Volume 10.7 fl (6.0-9.5); Platelet Count 76 K/mm3 (150-450); Red Blood Count 2.96 M/mm3 (4.2-5.4); Red Cell Distribution Width 12.8 % (11.5-14.0); White Blood Count 5.1 K/mm3 (4.0-10.5)
[2016-09-27 06:11] LABS: BUN/Creatinine Ratio 10.1 (9.0-21.6); Calcium * 8.2 mg/dL (7.9-10.9); Carbon Dioxide 29.6 mmol/L (24-32.6); Estimated Creat Clear 86.1; Potassium 3.6 mmol/L (3.4-4.6)
[2016-09-27] MEDS: LEVOTHYROXINE SODIUM 25 MCG TABLET PO SCH (06:57)
--- NOTE | 2016-09-27 08:46 | PN ---
Subjective - Date and Time Seen Date: 09/27/16 Time: 08:42 Subjective Narrative: Nausea gone. Appetite better. Would like a little better pain control. Objective - Review of Systems Generalized/Overall Review: Reports: No Symptoms Reported EENTM: Reports: No Symptoms Reported Respiratory: Reports: No Symptoms Reported Cardiac: Reports: No Symptoms Reported Abdominal: Reports: No Symptoms Reported Genitourinary Symptoms: Reports: No Symptoms Reported Musculoskeletal Complaints: Reports: Joint Pain - has steps in her house. hasn' t done steps yet. Neurological: Reports: No Symptoms Reported Skin: Reports: No Symptoms Reported Endocrine: Reports: No Symptoms Reported Misc: All systems neg except as marked - Vitals Vitals: Last Vital Signs Selected Entries 09/27/16 07:48 Temperature 37 C Temperature Oral Source Pulse Rate 90 Respiratory 18 Rate Respiratory Normal Depth Blood Pressure 107/56 Blood Pressure Supine Position O2 Sat by Pulse 96 Oximetry Oxygen Delivery Room Air Method - Abnormal Lab Findings Abnormal Lab Findings: Abnormal Lab Results 09/27/16 Range/Units 05:44 RBC 2.96 L (4.2-5.4) M/mm3 Hgb 9.2 L (12.5-16.0) gm/dL Hct 26.7 L (37.0-47.0) % MCH 31.1 H (27-31) pg Plt Count 76 L (150-450) K/mm3 MPV 10.7 H (6.0-9.5) fl - Exam Constitutional: Present: Alert, Oriented x3, Cooperative, Well developed, Well nourished, No distress ENT Exam: Present: normal ENT inspection, hearing grossly normal Neck: Present: normal inspection Respiratory: Present: normal breath sounds, no respiratory distress Cardiovascular/Chest: Present: no chest tenderness, no edema Abdomen: Present: Normal bowel sounds, soft, nontender, nondistended, no rebound tenderness, no hepatospenomegaly, no masses Extremity: Present: normal inspection, other - hurts to move right hip Neurologic: Present: alert, oriented x 3 Appearance: Present: appropriate appearance, appropriate insight, neat, no memory impairment Eye contact: Present: cooperative, good eye contact, normal speech Thoughts: Present: normal thought pattern Cauti Physician Documentation - Urinary Catheter Management Urethral (Pearce) Date of Insertion: 09/24/16 Time of Insertion: 15:38 Date of Removal: 09/26/16 Time of Removal: 06:35 Assessment/Plan Plan Narrative: increase norco dose from 1/2 pill to 1 pill each time. therapy today to include steps and she has steps at home and then probably home tomorrow. - Problems/Diagnosis (1) Fracture of femoral neck, right, closed Problem: Acute Qualifiers: Encounter type: subsequent encounter Fracture healing: with routine healing Qualified Code(s): S72.001D - Fracture of unspecified part of neck of right femur, subsequent encounter for closed fracture with routine healing
[2016-09-27] MEDS: METOCLOPRAMIDE HCL 5 MG/5 ML BTL PO SCH ×4 (09:20→20:19)
[2016-09-27] MEDS: ENOXAPARIN SODIUM 40 MG/0.4 ML SYRG SC SCH (09:20)
[2016-09-27] MEDS: ACETAMINOPHEN 325 MG TABLET PO SCH ×4 (09:20→20:19)
--- NOTE | 2016-09-27 13:46 | PN ---
Subjective - Date and Time Seen Date: 09/27/16 Time: 13:43 Subjective Narrative: Subjective: Reports nausea last night as well as difficulty sleeping - somewhat better today. Noted pain and medications were altered. Was able to ambute stairs with therapy. Pain is well-controlled. Voiding without any complications. Tolerating by mouth intake. Denies calf pain. Physical exam: Alert and oriented to person, place and time Right lower Extremity: NVI, Dressings clean and dry. Able to flex and extend ankle and toes. No excessive drainage. Assessment: Postop day 2 status post right total hip arthroplasty. Plan: Continue with physical and occupational therapy weightbearing as tolerated. Continue anterior hip precautions. Continue with anticoagulation. Pain control with goal to rely on oral medications. Continue bowel regimen. Will need 6 weeks with walker or assitive device to protect joint while ambulating during the recovery process. Discharge planning. She will follow up with me in approximately 2 weeks. She is okay to shower as long there is no drainage from the wound. She will need a total of 10 days of Lovenox including the doses that she receives in the hospital followed by a 325mg aspirin daily. From an orthopedic standpoint she can be discharged home once she is meets her PT goals and has a pain regimen that she tolerates. Objective - Vitals Vitals: Last Vital Signs Temp 36.8 C 09/27/16 10:52 Pulse 94 09/27/16 10:52 Resp 18 09/27/16 10:52 BP 112/64 09/27/16 10:52 Pulse Ox 99 09/27/16 10:52 - Abnormal Lab Findings Abnormal Lab Findings: Abnormal Lab Results 09/27/16 Range/Units 05:44 RBC 2.96 L (4.2-5.4) M/mm3 Hgb 9.2 L (12.5-16.0) gm/dL Hct 26.7 L (37.0-47.0) % MCH 31.1 H (27-31) pg Plt Count 76 L (150-450) K/mm3 MPV 10.7 H (6.0-9.5) fl Cauti Physician Documentation - Urinary Catheter Management Urethral (Pearce) Date of Insertion: 09/24/16 Time of Insertion: 15:38 Date of Removal: 09/26/16 Time of Removal: 06:35 Assessment/Plan - Problems/Diagnosis (1) Fracture of femoral neck, right, closed Problem: Acute Qualifiers: Encounter type: subsequent encounter Fracture healing: with routine healing Qualified Code(s): S72.001D - Fracture of unspecified part of neck of right femur, subsequent encounter for closed fracture with routine healing
[2016-09-27] MEDS: SENNOSIDES/DOCUSATE SODIUM 1 TAB TABLET PO SCH (20:19)
[2016-09-28] MEDS: HYDROcodone/ACETAMINOPHEN 1 EACH TABLET PO PRN ×3 (02:29→12:30)
[2016-09-28] MEDS: LEVOTHYROXINE SODIUM 25 MCG TABLET PO SCH (07:54)
--- NOTE | 2016-09-28 08:10 | DS ---
(1) Fracture of femoral neck, right, closed Problem: Acute Qualifiers: Encounter type: subsequent encounter Fracture healing: with routine healing Qualified Code(s): S72.001D - Fracture of unspecified part of neck of right femur, subsequent encounter for closed fracture with routine healing Description of Stay: Hip repaired without incident. Nausea and pain control became issues following surgery. Meds adjusted with good effect, and she did well. Procedures Performed: see notes below - Right Total hip arthroplasty Discharge Disposition: Home self care Disposition: Home self-care Condition: Good Discharge Activity: Activity as tolerated - with walker Discharge Diet: General/regular food [facility] Therapy: Physicial Therapy Referrals: Justice Arce MD [Primary Care Provider] - Consultation Done:: courtney Beckford Problem Oriented Discharge Instructions to Patient/Family: Hip Fracture Additional Patient Instructions (free text): Continue with physical and occupational therapy. Weightbearing as tolerated. Continue anterior hip precautions. Continue with anticoagulation. 6 weeks with walker or assitive device to protect joint while ambulating during the recovery process.Follow up with me in approximately 2 weeks. Shower as long there is no drainage from the wound. She will need a total of 9 days of Lovenox. Followed by 325mg aspirin daily for 1 month. Prescriptions (Any new or edited meds): Acetaminophen [Tylenol] 650 mg PO QID PRN #1 tablet PRN Reason: Mild Pain Aspirin/Calcium Carbonate/Mag [Aspirin Buffered 325 mg Tab] 325 mg PO DAILY #30 tablet Enoxaparin Sodium [Lovenox] 40 mg SC Q24H #9 disp.syrin HYDROcodone/ACETAMINOPHEN [[place] 5-325] 1 each PO Q4H PRN #20 tablet PRN Reason: moderate to severe pain Complete Home Medications List: Complete Home Medication List: Levothyroxine Sodium [Synthroid] 25 mcg PO DAILY 09/24/16 Acetaminophen [Tylenol] 650 mg PO QID PRN #1 tablet 09/28/16 Enoxaparin Sodium [Lovenox] 40 mg SC Q24H #9 disp.syrin 09/28/16 HYDROcodone/ACETAMINOPHEN [[place] 5-325] 1 each PO Q4H PRN #20 tablet 09/28/16 Aspirin/Calcium Carbonate/Mag [Aspirin Buffered 325 mg Tab] 325 mg PO DAILY #30 tablet 10/07/16
[2016-09-28] MEDS: METOCLOPRAMIDE HCL 5 MG/5 ML BTL PO SCH (09:19)
[2016-09-28] MEDS: ACETAMINOPHEN 325 MG TABLET PO SCH (09:19)
[2016-09-28] MEDS: ENOXAPARIN SODIUM 40 MG/0.4 ML SYRG SC SCH (09:19)
[2016-09-28 10:30] VITALS: BP 116/74
== END 2016-09-28 12:30 | disposition home or self-care (01) | DRG 470 ==
LOC: ER 10:46 → MS 11:55
PROVIDERS: ADMIT Allergy & Immunology; ATTEND Allergy & Immunology
PROC: 0SR90JZ Replacement of Right Hip Joint with Synthetic Substitute, Open Approach (ICD-10-PCS; principal; 2016-09-25 09:00)
DX: S72.011A Unspecified intracapsular fracture of right femur, initial encounter for closed fracture (principal); W18.30XA Fall on same level, unspecified, initial encounter; Y93.69 Activity, other involving other sports and athletics played as a team or group; Y92.9 Unspecified place or not applicable; E03.9 Hypothyroidism, unspecified
CPT/HCPCS: 27130; 36415; 71010; 73502; 73552; 80048; 80053; 85025; 85027; 93005; 96374; 97110; 97116; 97162; 97165; 97530; 99283; J2405